=== PATIENT | male | born 1990 | race Caucasian/White ===

== ENCOUNTER 2016-07-21 15:52 | Emergency (ER) | payer SELFPAY ==
[2016-07-21 16:11] VITALS: BP 131/54; PULSE 90; RESP 16; TEMP 98.2; O2SAT 95
--- NOTE | 2016-07-21 17:05 | UCPHY ---
H & P Time Seen by Provider: 07/21/16 16:58 Patient Type: New HPI/ROS: This patient started a relationship and wants to have STD testing. He has no STD symptoms. He has never had an STD before ROS: No fevers no urinary symptoms no other complaints. Smoking Status: Never smoked Physical Exam: Physical Exam Vital signs are normal. General: No acute distress Eyes: Pupils equal and react to light. Extraocular motions are intact. Lungs: No respiratory distress. Cardiac: His skin appears well perfused Skin: No rash or pallor. Neuro: Alert with no sensorimotor deficits. Constitutional: Initial Vital Signs Temperature (C) 36.8 C 07/21/16 16:06 Heart Rate 90 07/21/16 16:06 Respiratory Rate 16 07/21/16 16:06 Blood Pressure 131/54 H 07/21/16 16:06 O2 Sat (%) 95 07/21/16 16:06 O2 Delivery Mode Room Air Allergies/Adverse Reactions: No Known Allergies Allergy (Verified 07/21/16 16:06) Home Medications: Medication Instructions Recorded QUETIAPINE FUMARATE [Seroquel Xr] 300 mg PO 07/25/11 MDM/Departure - MDM Diagnostics: Split specimen for Chlamydia GC, hep B, HSV studies pending - Depart Disposition: Home, Routine, Self-Care Clinical Impression: STD testing Condition: Good Additional Instructions: Diagnosis: STD testing Plan - THe results should be back in a few days. He should receive a call with any positive results. He can call us to check in few days he has in heard anything. Referrals: NONE *PRIMARY CARE P,. [Primary Care Provider] - As per Instructions - PQRS PQRS Measurement: NA
[2016-07-22 13:12] LABS: CHLAMYDIA AMPLIFICATION GENPRB NEGATIVE (NEGATIVE)
[2016-07-22 13:48] LABS: HSV1 IGG ANTIBODY Negative (Negative); HSV2 IGG ANTIBODY Negative (Negative)
[2016-07-25 07:28] LABS: HEPATITIS B VIRAL DNA ASSAY Undetected IU/mL (Undetected)
== END 2016-07-21 17:57 | disposition home or self-care (01) ==
LOC: CED 15:52
DX: Z11.3 Encounter for screening for infections with a predominantly sexual mode of transmission (principal)
CPT/HCPCS: 87517-90; 99202-PO; G0463-PO